=== PATIENT | male | born 1970 | race American Indian/Alaskan Native ===

== ENCOUNTER 2017-12-19 15:20 | Emergency (ER) | payer BC, OTHER ==
[2017-12-19 15:41] VITALS: BMI 27.5
--- NOTE | 2017-12-19 15:44 | ED PDOC ---
HPI: General Adult Time Seen by Provider: 12/19/17 15:32 Chief Complaint (Provider): Ear pain History Per: Patient History/Exam Limitations: no limitations Onset/Duration Of Symptoms: Days (3) Current Symptoms Are (Timing): Still Present Additional Complaint(s): Pt. went swimming 6 days ago. [place] water in his left ear and kept trying to get it out. 3 days later he got pain in the left ear. For 2 days pain going up from ear to the head on the left. No numbness, tingles, weakness, vision changes, neck pain, dyspnea, fever. David helps pain go away. Not the worst pain in his life. No pain in the other ear. No sore throat. No hearing issues. Past Medical History Reviewed: Nursing Documentation, Vital Signs - Medical History PMH: HTN - Surgical History Surgical History: No Surg Hx - Family History Family History: States: Unknown Family Hx - Living Arrangements Living Arrangements: With Family - Home Medications Home Medications: Ambulatory Orders Medication Instructions Recorded Losartan [Cozaar] 25 mg PO DAILY 03/31/17 Ibuprofen [Motrin] 600 mg PO TID 7 Days tab 12/19/17 Ofloxacin Otic 0.3% [Floxin 0.3% 10 ml DAILY 7 Days bottle 12/19/17 Otic Soln] - Allergies Allergies/Adverse Reactions: Allergies Allergy/AdvReac Type Severity Reaction Status Date / Time No Known Allergies Allergy Verified 03/31/17 08:16 Review of Systems Constitutional: Negative for: Fever, Weakness ENT: Positive for: Ear Pain. Negative for: Ear Discharge, Nose Pain, Nose Discharge, Nose Congestion, Mouth Pain, Throat Pain Cardiovascular: Negative for: Chest Pain Respiratory: Negative for: Cough, Shortness of Breath Gastrointestinal: Negative for: Nausea, Vomiting, Abdominal Pain Neurological: Positive for: Headache. Negative for: Weakness, Numbness, Dizziness Physical Exam - Reviewed Nursing Documentation Reviewed: Yes Vital Signs Reviewed: Yes - Physical Exam Appears: Positive for: Non-toxic, No Acute Distress Head Exam: Positive for: ATRAUMATIC, NORMAL INSPECTION (no head tenderness), NORMOCEPHALIC Skin: Positive for: Normal Color, Warm, DRY Eye Exam: Positive for: EOMI, Normal appearance, PERRL ENT: Positive for: TM Is/Are (L ear TM with no erythema, ? small fluid level. Eustacian tube with no erythema; L external ear with no tenderenss or erythema; No posterior ear tenderness). Negative for: Sinus Pain/Drainage, Nasal Congestion, Pharyngeal Erythema Neck: Positive for: Normal, Painless ROM Cardiovascular/Chest: Positive for: Regular Rate, Rhythm Respiratory: Positive for: CNT, Normal Breath Sounds Back: Positive for: Normal Inspection. Negative for: L CVA Tenderness, R CVA Tenderness Neurologic/Psych: Positive for: Alert, certified low vision therapist II-XII, Oriented. Negative for: Motor/Sensory Deficits, Facial Droop - Progress ED Course And Treament: 1552: Considering pt. exposure to water and ear pain following, will tx accordingly. Tolerates po. AAOx3. Will fu with pcp and ENT. Disposition - Clinical Impression Clinical Impression: Swimmers' ear - Patient ED Disposition Is Patient to be Admitted: No Counseled Patient/Family Regarding: Diagnosis, Need For Followup, Rx Given - Disposition Referrals: [facility] [Outside] - 12/20/17 Disposition: Routine/Home Disposition Time: 15:54 Condition: STABLE Additional Instructions: CLOTILDE DALY, thank you for letting us take care of you today. Your provider was Elliot Friedman MD and you were treated for HEADACHE. The emergency medical care you received today was directed at your acute symptoms. If you were prescribed any medication, please fill it and take as directed. It may take several days for your symptoms to resolve. Return to the Emergency Department if your symptoms worsen, do not improve, or if you have any other problems. Please contact your doctor or call one of the physicians/clinics you have been referred to that are listed on the Patient Visit Information form that is included in your discharge packet. Bring any paperwork you were given at discharge with you along with any medications you are taking to your follow up visit. Our treatment cannot replace ongoing medical care by a primary care provider outside of the emergency department. Thank you for allowing the [facility] team to be part of your care today. If you had an X-Ray or CT scan: A Radiologist will review the ED reading if any change in treatment is needed we will contact you. If you had a blood, urine, or wound culture: It will take several days for the results, if any change in treatment is needed we will contact you. If you had an STI test: It will take 48 hours for the results. Please call after 1 week if you have not heard back. Return if not better in 3 days. Follow up with your doctor and ENT in 3 days. Prescriptions: Ibuprofen [Motrin] 600 mg PO TID 7 Days tab Ofloxacin Otic 0.3% [Floxin 0.3% Otic Soln] 10 ml DAILY 7 Days bottle Instructions: Outer Ear Infection Forms: [facility] (Welsh)
[2017-12-19 16:03] VITALS: BP 142/74; PULSE 71; RESP 15; TEMP 98.2; O2SAT 99
== END 2017-12-19 16:22 | disposition home or self-care (01) ==
LOC: H.ER 15:20
DX: H60.339 Swimmer's ear, unspecified ear (principal)